=== PATIENT | female | born 1985 | race Caucasian/White ===

== ENCOUNTER 2017-09-15 17:50 | Emergency (ER) | payer OTHER, MEDICAID ==
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
[2017-09-15 19:32] VITALS: BP 97/53
== END 2017-09-15 19:34 | disposition home or self-care (01) ==
LOC: EDUNIT#
DX: O9A.211 Injury, poisoning and certain other consequences of external causes complicating pregnancy, first trimester (principal); S63.502A Unspecified sprain of left wrist, initial encounter; Z3A.13 13 weeks gestation of pregnancy; V43.62XA Car passenger injured in collision with other type car in traffic accident, initial encounter; Y92.410 Unspecified street and highway as the place of occurrence of the external cause